=== PATIENT | female | born 1940 | race Caucasian/White ===

== ENCOUNTER 2016-02-21 12:37 | Outpatient (CLI) | payer MEDICARE, OTHER ==
[2016-02-21 13:27] LABS: Albumin 3.9 g/dL (3.4-4.8); Anion Gap 16 mmol/L (10-20); BUN (Urea Nitrogen) 25 mg/dL (9.8-20.1); Calc. Creatinine Clearance 0 mL/min (70-130); Calcium 8.8 mg/dL (7.8-10.44); Carbon Dioxide 21 mmol/L (23-31); Chloride 107 mmol/L (98-107); Estimated GFR-MDRD 48; Glucose 69 mg/dL (83-110); Magnesium 1.8 mg/dL (1.6-2.6); Phosphorus 4.6 mg/dL (2.3-4.7); Potassium 4.6 mmol/L (3.5-5.1); Sodium 139 mmol/L (136-145)
== END 2016-02-21 12:38 | disposition home or self-care (01) ==
LOC: MADLAB 12:37
PROVIDERS: ATTEND Internal Medicine Nephrology
DX: I12.9 Hypertensive chronic kidney disease with stage 1 through stage 4 chronic kidney disease, or unspecified chronic kidney disease (principal); N18.2 Chronic kidney disease, stage 2 (mild); N25.81 Secondary hyperparathyroidism of renal origin; E87.2 Acidosis; E83.51 Hypocalcemia
CPT/HCPCS: 36415; 80048; 82040; 82306; 83735; 83970; 84100

== ENCOUNTER 2019-05-19 03:53 | Inpatient (IN) | payer MEDICARE ==
[2019-05-19] MEDS ORDERED: Lidocaine 1% 20 ML MDV ONE (05:00)
[2019-05-19 05:52] LABS: Bilirubin Negative (Negative); Blood, Urine Large (Negative); Clarity Clear (Clear); Glucose, Urine (Dipstick) Negative (Negative); Leukocyte Trace (Negative); Nitrite Positive (Negative); Protein, Urine (Dipstick) 100 mg/dL (Neg-Trace); Urobilinogen 0.2 mg/dL (Less than 2)
[2019-05-19 06:09] LABS: ALT (SGPT) 11 U/L (8-55); AST (SGOT) 21 U/L (5-34); Albumin 2.9 g/dL (3.4-4.8); Alkaline Phosphatase 105 U/L (40-110); Anion Gap 11 mmol/L (10-20); BUN (Urea Nitrogen) 25 mg/dL (9.8-20.1); Bilirubin, Total 0.2 mg/dL (0.2-1.2); Calc. Creatinine Clearance 0 mL/min (70-130); Calcium 8.1 mg/dL (7.8-10.44); Carbon Dioxide 16 mmol/L (23-31); Chloride 115 mmol/L (98-107); Estimated GFR-MDRD 48; Globulin 3.2 g/dL (2.4-3.5); Glucose 93 mg/dL (83-110); Lipase 14 U/L (8-78); Protein, Total 6.1 g/dL (6.0-8.3); Sodium 139 mmol/L (136-145)
[2019-05-19 06:10] LABS: Bacteria/HPF 2+ HPF (None Seen); Mucous/LPF Rare LPF (<2+)
[2019-05-19] MEDS ORDERED: Adacel (T-DAP) 0.5 ML SYRINGE ONE (06:11)
[2019-05-19 06:12] LABS: Hemoglobin 9.7 g/dL (12.0-16.0); Mean Corpuscular HGB CONC 33.6 g/dL (32.0-36.0); Mean Corpuscular Hemoglobin 34.6 pg (27.0-31.0); Mean Platelet Volume 6.3 fL (7.4-10.4); Platelet Count 211 thou/uL (130-400)
[2019-05-19 06:22] LABS: Manual Diff?? YES
[2019-05-19 06:23] LABS: Band 7 % (5-11); Lymphocytes 6 % (21-51); MDiff Complete? YES; Neutrophil 80 % (42-75)
[2019-05-19 06:24] LABS: Anisocytosis SLIGHT = 6-15 cells (100X) (0-5/hpf); Monocytes 7 % (0-10); Platelet Morphology Comment Appears Adequate; Poikilocytosis SLIGHT = 6-15 cells (100X) (0-5/hpf)
--- NOTE | 2019-05-19 07:24 | CT ---
PRELIMINARY REPORT/[facility]/EMERGENCY AFTER HOURS PROCEDURE: PROCEDURE: CT Head without Contrast . HISTORY: Fall. TECHNIQUE: Axial images were performed without the administration of IV contrast with or without mult iplanar reformations . COMPARISON: None. FINDINGS: Brain shows no mass, hemorrhage, or acute stroke. Moderate periventricular old microischemic changes. Moderate diffuse cerebral and cerebellar atrophy . Ventricles are normal size for patient's age. No acute skull or scalp abnormality. Visualized sinuses and mastoids are clear . IMPRESSION: No acute intracranial abnormality. Senescent changes . ELECTRONICALLY SIGNED BY: Tyshawn Stevenson MD May 19, 2019 5:21:00 AM CDT This report is intended for review by the ordering physician only, in accordance of law. If you recei ve this report in error, please call [facility] at [phone]. FINAL REPORT EMERGENCY AFTER HOURS CT BRAIN WITHOUT CONTRAST: COMPARISON: 11/30/18. FINDINGS/IMPRESSION: I agree with the findings and impression given in the preliminary report per [facility] physici an. Small vessel ischemic disease without acute intracranial abnormality.
--- NOTE | 2019-05-19 07:28 | CT ---
PRELIMINARY REPORT/[facility]/EMERGENCY AFTER HOURS PROCEDURE: PROCEDURE: CT scan Cervical Spine without contrast. HISTORY: Fall. TECHNIQUE: Axial images were performed without IV contrast with multiplanar reconstructions . COMPARISON: None . FINDINGS: No acute fracture or displacement. No disc space narrowing or spur formation. Facets show normal alignment with scattered mild arthrosis. Spinous processes show some secondary os sification centers at the tip of the C7 and T1 spinous processes. Mild to moderate median atlantoaxial joint arthrosis. Moderate atherosclerosis at the carotid bifurcations. IMPRESSION: No acute bony abnormality. Cervical spondyloarthropathy. Moderate atherosclerosis. ELECTRONICALLY SIGNED BY: Tyshawn Stevenson MD May 19, 2019 5:30:24 AM CDT This report is intended for review by the ordering physician only, in accordance of law. If you recei ve this report in error, please call [facility] at [phone]. FINAL REPORT EMERGENCY AFTER HOURS CT CERVICAL SPINE WITHOUT CONTRAST: COMPARISON: 09/27/2018. FINDINGS/IMPRESSION: I agree with the findings and impression given in the preliminary report per [facility] physici an. No evidence of acute osseous abnormality of the cervical spine.
--- NOTE | 2019-05-19 07:37 | RAD ---
EXAM: Portable chest PROVIDED CLINICAL HISTORY: Leukocytosis COMPARISON: 12/21/2018 FINDINGS: Cardiac and mediastinal silhouette is within normal limits. No focal consolidation, pleural fluid or pneumothorax evident. Vascular calcification involves the aortic arch. IMPRESSION: No evidence for an acute cardiopulmonary process.
[2019-05-19] MEDS ORDERED: Potassium Chloride 20 MEQ TAB ONE (08:06)
[2019-05-19] MEDS ORDERED: Sodium Chloride 0.9% 100 ML ONE (08:06)
[2019-05-19] MEDS ORDERED: cefTRIAXone\\ROCEPHIN 1 GM VIAL ONE (08:06)
[2019-05-19] MEDS: Acetaminophen 325 MG TAB PO PRN (12:13)
[2019-05-19] MEDS ORDERED: Non-Formulary Item 1 EACH (Ondansetron Hcl [Zofran] 8 MG) PO PRN (12:31)
[2019-05-19] MEDS ORDERED: MAG HYDROX PO PRN (12:31)
[2019-05-19] MEDS ORDERED: ALPRAZOLAM 1 MG PO PRN (12:31)
[2019-05-19] MEDS ORDERED: Diphenoxylate HCl/Atropine Tablet PO PRN (12:31)
[2019-05-19] MEDS ORDERED: [UNRECOGNIZED DRUG - OTHER] PO PRN (12:31)
[2019-05-19] MEDS ORDERED: CA CARB PO PRN (12:31)
[2019-05-19] MEDS ORDERED: FAMOTIDINE PO PRN (12:31)
[2019-05-19] MEDS ORDERED: [UNRECOGNIZED DRUG - OTHER] PO PRN (12:52)
[2019-05-19] MEDS ORDERED: Ondansetron ODT 4 MG TAB PO PRN (12:53)
[2019-05-19] MEDS ORDERED: Non-Formulary Item 1 EACH (Rivaroxaban [Xarelto] 15 MG) PO SCH (17:00)
[2019-05-19] MEDS ORDERED: FAMCICLOVIR 500 MG PO SCH (17:45)
[2019-05-19] MEDS: Dronedarone HCl 400 MG TAB PO SCH (17:49)
[2019-05-19] MEDS ORDERED: Rivaroxaban 10 MG TAB ONE (17:55)
[2019-05-19] MEDS: Rivaroxaban 10 MG TAB PO SCH (17:57)
[2019-05-19] MEDS: Promethazine 25 MG TAB PO SCH (20:58)
[2019-05-19] MEDS: Carvedilol 3.125 MG TAB PO SCH (20:58)
[2019-05-20 05:32] LABS: Band 1 % (5-11); Eosinophils 3 % (0-10); Hemoglobin 9.8 g/dL (12.0-16.0); Lymphocytes 8 % (21-51); MDiff Complete? YES; Mean Corpuscular HGB CONC 32.5 g/dL (32.0-36.0); Mean Corpuscular Hemoglobin 33.5 pg (27.0-31.0); Mean Corpuscular Volume 102.9 fL (78.0-98.0); Monocytes 4 % (0-10); Neutrophil 84 % (42-75); Platelet Count 217 thou/uL (130-400); Platelet Morphology Comment Appears Adequate; Polychromasia SLIGHT = 2-3 cells (100X) (0-2/hpf); RBC Distribution Width 17.7 % (11.5-14.5); Red Blood Cell (RBC) Count 2.93 mill/uL (4.20-5.40); White Blood Cell (WBC) Count 15.7 thou/uL (4.8-10.8)
[2019-05-20 05:48] LABS: Anion Gap 10 mmol/L (10-20); BUN (Urea Nitrogen) 19 mg/dL (9.8-20.1); Calc. Creatinine Clearance 0 mL/min (70-130); Carbon Dioxide 13 mmol/L (23-31); Chloride 121 mmol/L (98-107); Estimated GFR-MDRD 64; Glucose 68 mg/dL (83-110); Potassium 3.4 mmol/L (3.5-5.1); Sodium 141 mmol/L (136-145)
[2019-05-20] MEDS ORDERED: Levothyroxine Sodium 88 MCG TAB PO SCH (09:00)
[2019-05-20] MEDS ORDERED: VORTIOXETINE HYDROBROMIDE 20 MG PO SCH (09:00)
[2019-05-20] MEDS: cefTRIAXone\\ROCEPHIN 1 GM in Sodium Chloride 0.9% 100 ML IVPB SCH (09:22)
[2019-05-20] MEDS: Dronedarone HCl 400 MG TAB PO SCH ×2 (09:23→17:14)
[2019-05-20] MEDS: Spironolactone 25 MG TAB PO SCH (09:24)
[2019-05-20] MEDS: FAMCICLOVIR 500 MG PO SCH (09:24)
[2019-05-20] MEDS: TRINTELLIX 20 MG PO SCH (09:25)
[2019-05-20] MEDS: Rivaroxaban 10 MG TAB PO SCH (17:14)
[2019-05-20] MEDS: Promethazine 25 MG TAB PO SCH (20:25)
[2019-05-20] MEDS: Carvedilol 3.125 MG TAB PO SCH (20:26)
[2019-05-20] MEDS: ALPRAZolam 0.5 MG TAB PO PRN (23:01)
[2019-05-21 05:54] LABS: #Basophils 0.1 thou/uL (0.0-0.2); #Eosinphils 0.6 thou/uL (0.0-0.7); #Lymphocytes 1.5 thou/uL (1.20-3.40); #Monocytes 1.1 thou/uL (0.11-0.59); #Neutrophils 11.2 thou/uL (1.40-6.50); %Basophils 0.6 % (0.0-1.0); %Lymphocytes 10.4 % (21.0-51.0); %Monocytes 7.3 % (0.0-10.0); %Neutrophils 77.6 % (42.0-75.0); Hemoglobin 10.1 g/dL (12.0-16.0); Mean Corpuscular HGB CONC 33.1 g/dL (32.0-36.0); Mean Corpuscular Hemoglobin 33.1 pg (27.0-31.0); Mean Corpuscular Volume 99.8 fL (78.0-98.0); Mean Platelet Volume 6.4 fL (7.4-10.4); Platelet Count 227 thou/uL (130-400); Red Blood Cell (RBC) Count 3.06 mill/uL (4.20-5.40); White Blood Cell (WBC) Count 14.5 thou/uL (4.8-10.8)
[2019-05-21 06:10] LABS: Anion Gap 11 mmol/L (10-20); BUN (Urea Nitrogen) 14 mg/dL (9.8-20.1); Calc. Creatinine Clearance 0 mL/min (70-130); Calcium 8.1 mg/dL (7.8-10.44); Carbon Dioxide 15 mmol/L (23-31); Chloride 119 mmol/L (98-107); Estimated GFR-MDRD 62; Glucose 70 mg/dL (83-110); Potassium 3.2 mmol/L (3.5-5.1); Sodium 142 mmol/L (136-145)
[2019-05-21] MEDS: Levothyroxine Sodium 75 MCG TAB PO SCH (06:32)
[2019-05-21] MEDS: FAMCICLOVIR 500 MG PO SCH (09:30)
[2019-05-21] MEDS: Dronedarone HCl 400 MG TAB PO SCH ×2 (09:30→17:40)
[2019-05-21] MEDS: cefTRIAXone\\ROCEPHIN 1 GM in Sodium Chloride 0.9% 100 ML IVPB SCH ×2 (09:30→17:46)
[2019-05-21] MEDS: TRINTELLIX 20 MG PO SCH (09:30)
[2019-05-21] MEDS: Spironolactone 25 MG TAB PO SCH (09:30)
[2019-05-21] MEDS ORDERED: Potassium Chloride 20 MEQ TAB PO SCH (12:15)
[2019-05-21] MEDS: ALPRAZolam 0.5 MG TAB PO PRN (13:46)
[2019-05-21] MEDS: Acetaminophen 325 MG TAB PO PRN (16:46)
[2019-05-21] MEDS ORDERED: Sodium Chloride 0.9% 500 ML IV SCH (17:15)
[2019-05-21] MEDS: Rivaroxaban 10 MG TAB PO SCH (17:40)
[2019-05-21] MEDS: Promethazine 25 MG TAB PO SCH ×3 (21:34→21:44)
[2019-05-21] MEDS: Carvedilol 3.125 MG TAB PO SCH (21:37)
[2019-05-21] MEDS: metroNIDAZOLE 500 MG in Premix Bag 1 BAG IVPB SCH (21:37)
--- NOTE | 2019-05-22 01:25 | HP ---
Date of Encounter: 05/19/2019 PRIMARY CARE PROVIDER: Jame Gil MD HISTORY OF PRESENT ILLNESS: The patient is a 78-year-old female who has history of chronic diarrhea, who presented to the emergency department status post a fall. Patient reports that she fell out of her chair. She is unsure of what prompted her to the fall. She just remembers ending up on the floor. She hit the left side of the head on the ground. She denies any chest pain or shortness of breath prior to the fall. She does note increased diarrhea over the last several days. The patient does have a history of, as stated previously, chronic diarrhea, for which she sees Dr. Alaniz for routine GI treatments. In addition to increased diarrhea, she also reports decreased p.o. intake over the last couple days. She states that she has never fallen before and is normally very ambulatory on her own. Of note, she has had a colonoscopy and EGD in the last several years. She is unsure of the results, but states that they were normal. PAST MEDICAL HISTORY: 1. Chronic diarrhea. 2. Atrial fibrillation. 3. Hypothyroidism. 4. Prior history of pulmonary embolism. 5. Chronic anemia. MEDICATION: 1. Tylenol No. 3. 2. Mirtazapine 15 mg daily. 3. Tums. 4. Alprazolam 1 mg p.o. t.i.d. p.r.n. 5. Famciclovir 500 mg p.o. daily. 6. Lomotil 2 tablets p.o. q.i.d. p.r.n. 7. Multaq 400 mg p.o. b.i.d. 8. Levothyroxine 88 mcg p.o. q.a.m. 9. Zofran 8 mg p.o. q.i.d. p.r.n. 10. Pantoprazole 40 mg p.o. b.i.d. 11. Phenergan 25 mg p.o. at bedtime. 12. Xarelto 15 mg p.o. q.p.m. 13. Spironolactone 12.5 mg p.o. daily. 14. Trintellix 20 mg p.o. daily. 15. Colestipol 1 mg p.o. b.i.d. ALLERGIES: 1. DOXYCYCLINE. 2. IBUPROFEN. 3. LEVOFLOXACIN. 4. NITROFURANTOIN. 5. SIMVASTATIN. 6. SULFA DRUGS. PAST SURGICAL HISTORY: 1. Gastric bypass. 2. Hernia repair. 3. Hysterectomy. 4. Tonsillectomy. 5. Appendectomy. 6. Urostomy. 7. Left hip surgery. SOCIAL HISTORY: Patient denies tobacco, alcohol, or drug use. She lives at home with her and is independent of all ADLs. FAMILY HISTORY: Noncontributory. REVIEW OF SYSTEMS: CONSTITUTIONAL: Patient denies any fevers or chills. Does report generalized weakness. HEENT: Patient denies vision problems or eye pain. CARDIOVASCULAR: Patient denies chest pain or palpitations. PULMONARY: Patient denies cough, shortness of breath. GASTROINTESTINAL: Patient reports diarrhea and abdominal pain. Denies nausea or vomiting. SKIN: Patient denies rashes or lesions. NEUROLOGICAL: Patient denies headache or dizziness. PSYCHIATRIC: Patient does report anxiety. PHYSICAL EXAMINATION: VITAL SIGNS: Temperature 96.5, pulse 75, respirations 18, oxygen 98% on room air, blood pressure 138/70. GENERAL: Patient is alert and oriented x3, in no distress. HEENT: Normocephalic. Approximately 1 inch laceration to the left shinto, status post repair with simple interrupted sutures. Extraocular muscles intact. Conjunctiva clear. Moist mucous membranes. CARDIOVASCULAR: Regular rate and rhythm. No murmurs, rubs, or gallops. LUNGS: Clear to auscultation bilaterally. No wheezes, rhonchi, or crackles. ABDOMEN: Normoactive bowel sounds. Soft, mild tenderness to palpation in the lower abdomen. No rebound or guarding. Urostomy bag in place. EXTREMITIES: Normal bulk and tone. No peripheral edema or cyanosis. NEUROLOGICAL: Cranial nerves 2-12 intact grossly. No focal deficits. 5/5 strength throughout. PSYCHIATRIC: Appropriate mood and affect. Mild anxiety noted. LABORATORY EVALUATION: CMP; sodium 139, potassium 3.0, chloride 115, carbon dioxide 16, BUN 25, creatinine 1.11, glucose 93, lactic acid 0.7, calcium 8.1, bilirubin 0.2, AST 21, ALT 11, alkaline phosphatase 105. Troponin 0.018. CBC; white blood cell count 19, hemoglobin 9.7, hematocrit 28.8, platelet count 211. Urinalysis significant for large blood, positive nitrites, trace leukocyte esterase, 7 to 10 red blood cells, 4 to 6 white blood cells, 4 to 6 squamous, 2+ bacteria. Brain CT that showed no acute intracranial abnormality. CT of the cervical spine shows no acute bony abnormalities. Cervical spondyloarthropathy. Moderate atherosclerosis. Chest x-ray that showed no evidence for acute cardiopulmonary process. ASSESSMENT/PLAN: Patient is a 78-year-old female who presented to the ER after a fall with complaints of generalized weakness. 1. Acute on chronic diarrhea. Stool samples have been collected. We will continue to monitor. No empiric treatment at this time. As long as patient is tolerating p.o. intake, we will encourage oral rehydration and we will add on IV hydration as needed. 2. Urinary tract infection. We will treat empirically with Rocephin. Urine cultures are pending. 3. Leukocytosis likely related to #1 and #2. We will continue to monitor. 4. Non-anion gap metabolic acidosis likely related to bicarbonate losses from diarrhea. We will continue to monitor. No need for acute intervention at this time. 5. Hypothyroidism. We will continue patient's home medication. We will check a TSH. 6. Chronic anemia, appears stable. Continue to monitor. 7. Anxiety. We will resume patient's home medications. 8. Atrial fibrillation, rate controlled at this time. Continue on anticoagulation. 9. Generalized weakness likely related to volume depletion. We will treat as above. We will also add on physical therapy and occupational therapy for evaluation. 10. Length of stay, greater than 2 midnights at this time. 11. DVT prophylaxis, Xarelto. We will place patient in observation at this time. We will continue to monitor. Job ID: [id number] [facility]
[2019-05-22] MEDS: Levothyroxine Sodium 75 MCG TAB PO SCH (05:21)
[2019-05-22] MEDS: metroNIDAZOLE 500 MG in Premix Bag 1 BAG IVPB SCH ×2 (05:21→14:13)
[2019-05-22 05:50] LABS: Band 7 % (5-11); Elliptocytes SLIGHT = 2-5 cells (100X) (0-1/hpf); Eosinophils 1 % (0-10); Hemoglobin 10.2 g/dL (12.0-16.0); Lymphocytes 2 % (21-51); MDiff Complete? YES; Mean Corpuscular HGB CONC 32.5 g/dL (32.0-36.0); Mean Corpuscular Volume 101.5 fL (78.0-98.0); Mean Platelet Volume 6.3 fL (7.4-10.4); Monocytes 6 % (0-10); Neutrophil 84 % (42-75); Platelet Count 224 thou/uL (130-400); Platelet Morphology Comment Appears Adequate; RBC Distribution Width 16.9 % (11.5-14.5); Red Blood Cell (RBC) Count 3.09 mill/uL (4.20-5.40); Schistocytes SLIGHT = 2-5 cells (100X) (0-1/hpf); White Blood Cell (WBC) Count 21.7 thou/uL (4.8-10.8)
[2019-05-22 05:53] LABS: ALT (SGPT) 20 U/L (8-55); AST (SGOT) 23 U/L (5-34); Albumin 2.8 g/dL (3.4-4.8); Alkaline Phosphatase 104 U/L (40-110); Anion Gap 11 mmol/L (10-20); BUN (Urea Nitrogen) 12 mg/dL (9.8-20.1); Bilirubin, Total 0.2 mg/dL (0.2-1.2); Calc. Creatinine Clearance 0 mL/min (70-130); Carbon Dioxide 15 mmol/L (23-31); Chloride 117 mmol/L (98-107); Estimated GFR-MDRD 65; Globulin 3.1 g/dL (2.4-3.5); Glucose 76 mg/dL (83-110); Magnesium 1.5 mg/dL (1.6-2.6); Potassium 3.1 mmol/L (3.5-5.1); Protein, Total 5.9 g/dL (6.0-8.3); Sodium 140 mmol/L (136-145)
[2019-05-22] MEDS ORDERED: Cefdinir 300 MG CAP PO SCH (09:00)
[2019-05-22] MEDS: Dronedarone HCl 400 MG TAB PO SCH ×2 (09:01→18:23)
[2019-05-22] MEDS: Spironolactone 25 MG TAB PO SCH (09:01)
[2019-05-22] MEDS: TRINTELLIX 20 MG PO SCH (09:03)
[2019-05-22] MEDS: FAMCICLOVIR 500 MG PO SCH (09:05)
[2019-05-22] MEDS: ALPRAZolam 0.5 MG TAB PO PRN (09:10)
[2019-05-22] MEDS ORDERED: Magnesium Oxide 400 MG TAB PO SCH (10:45)
[2019-05-22] MEDS ORDERED: Potassium Chloride 20 MEQ TAB PO SCH (12:00)
[2019-05-22] MEDS: Potassium Chloride 10 MEQ TAB PO SCH ×2 (12:06→18:23)
[2019-05-22] MEDS: Vancomycin HCl 25 MG/ML Oral PO SCH ×2 (18:21→23:38)
[2019-05-22] MEDS: cefTRIAXone\\ROCEPHIN 1 GM in Sodium Chloride 0.9% 100 ML IVPB SCH (18:21)
[2019-05-22] MEDS: Rivaroxaban 10 MG TAB PO SCH (18:22)
[2019-05-22] MEDS: Famotidine 20 MG TAB PO SCH (21:19)
[2019-05-22] MEDS: Promethazine 25 MG TAB PO SCH (21:19)
[2019-05-22] MEDS: Carvedilol 3.125 MG TAB PO SCH (21:19)
[2019-05-23] MEDS: Vancomycin HCl 25 MG/ML Oral PO SCH ×4 (05:17→23:54)
[2019-05-23] MEDS: Levothyroxine Sodium 75 MCG TAB PO SCH (05:17)
[2019-05-23 05:56] LABS: #Basophils 0.1 thou/uL (0.0-0.2); #Eosinphils 0.6 thou/uL (0.0-0.7); #Monocytes 0.9 thou/uL (0.11-0.59); #Neutrophils 8.3 thou/uL (1.40-6.50); %Basophils 0.6 % (0.0-1.0); %Eosinophils 4.8 % (0.0-10.0); %Lymphocytes 16.6 % (21.0-51.0); %Monocytes 7.5 % (0.0-10.0); %Neutrophils 70.5 % (42.0-75.0); Hemoglobin 10.6 g/dL (12.0-16.0); Mean Corpuscular HGB CONC 32.3 g/dL (32.0-36.0); Mean Corpuscular Hemoglobin 33.7 pg (27.0-31.0); Mean Corpuscular Volume 104.5 fL (78.0-98.0); Mean Platelet Volume 6.3 fL (7.4-10.4); Platelet Count 235 thou/uL (130-400); RBC Distribution Width 18.1 % (11.5-14.5); Red Blood Cell (RBC) Count 3.15 mill/uL (4.20-5.40); White Blood Cell (WBC) Count 11.8 thou/uL (4.8-10.8)
[2019-05-23 06:17] LABS: Anion Gap 10 mmol/L (10-20); BUN (Urea Nitrogen) 13 mg/dL (9.8-20.1); Calc. Creatinine Clearance 0 mL/min (70-130); Calcium 8.4 mg/dL (7.8-10.44); Carbon Dioxide 13 mmol/L (23-31); Chloride 120 mmol/L (98-107); Estimated GFR-MDRD 56; Glucose 71 mg/dL (83-110); Sodium 139 mmol/L (136-145)
[2019-05-23] MEDS: Spironolactone 25 MG TAB PO SCH (09:01)
[2019-05-23] MEDS: Famotidine 20 MG TAB PO SCH ×2 (09:01→20:48)
[2019-05-23] MEDS: Dronedarone HCl 400 MG TAB PO SCH ×2 (09:01→17:39)
[2019-05-23] MEDS: TRINTELLIX 20 MG PO SCH (09:03)
[2019-05-23] MEDS: FAMCICLOVIR 500 MG PO SCH (09:04)
[2019-05-23] MEDS: ALPRAZolam 0.5 MG TAB PO PRN (17:40)
[2019-05-23] MEDS: Rivaroxaban 10 MG TAB PO SCH (17:40)
[2019-05-23] MEDS: Carvedilol 3.125 MG TAB PO SCH (20:41)
[2019-05-23] MEDS: Promethazine 25 MG TAB PO SCH (20:48)
[2019-05-24] MEDS: Levothyroxine Sodium 75 MCG TAB PO SCH (05:28)
[2019-05-24] MEDS: Vancomycin HCl 25 MG/ML Oral PO SCH ×2 (05:28→11:51)
[2019-05-24] MEDS: TRINTELLIX 20 MG PO SCH (08:08)
[2019-05-24] MEDS: Spironolactone 25 MG TAB PO SCH (08:08)
[2019-05-24] MEDS: Famotidine 20 MG TAB PO SCH (08:08)
[2019-05-24] MEDS: Dronedarone HCl 400 MG TAB PO SCH (08:08)
[2019-05-24] MEDS: FAMCICLOVIR 500 MG PO SCH (08:09)
[2019-05-24 10:53] VITALS: BP 115/57; TEMP 98.2
== END 2019-05-24 12:18 | disposition home health service (06) | DRG 690 ==
LOC: MADERS 03:53 → MADMS 07:55
PROVIDERS: ADMIT Family Medicine; ATTEND Family Medicine
DX: N39.0 Urinary tract infection, site not specified (principal); E87.2 Acidosis; D64.9 Anemia, unspecified; I48.91 Unspecified atrial fibrillation; F32.9 Major depressive disorder, single episode, unspecified; E03.9 Hypothyroidism, unspecified; Z66 Do not resuscitate; E87.6 Hypokalemia; K52.9 Noninfective gastroenteritis and colitis, unspecified; F41.9 Anxiety disorder, unspecified; E87.70 Fluid overload, unspecified; Z79.01 Long term (current) use of anticoagulants; Z86.711 Personal history of pulmonary embolism; Z90.710 Acquired absence of both cervix and uterus; Z90.49 Acquired absence of other specified parts of digestive tract; Z93.2 Ileostomy status; Z88.1 Allergy status to other antibiotic agents; Z88.2 Allergy status to sulfonamides; Z88.8 Allergy status to other drugs, medicaments and biological substances; Z88.6 Allergy status to analgesic agent
CPT/HCPCS: 12011; 36415; 70450; 71045; 72125; 80048; 80053; 81003; 81015; 83605; 83630; 83690; 83735; 84443; 84484; 85025; 87040; 87045; 87046; 87077; 87081; 87086; 87186; 87324; 87427; 87449; 90471; 90715; 93005; 94760; 96365; J0696; J2001; J3490; J7050; L0120; Q0162; Q0169

== ENCOUNTER 2022-11-18 13:58 | Emergency (ER) | payer OTHER, MEDICARE ==
[2022-11-18] MEDS ORDERED: Boostrix 0.5 ML (Tdap) VIAL (>/=7 yrs of age) ONE (14:31)
[2022-11-18] MEDS ORDERED: Lidocaine 1% PF 5 ML VIAL ONE (14:31)
[2022-11-18] MEDS ORDERED: Bacitracin 1 PK ONE (14:31)
[2022-11-18] MEDS ORDERED: Lidocaine 1% w/Epinephrine 1:100K 20 ML VIAL ONE (15:35)
== END 2022-11-18 17:17 | disposition home or self-care (01) ==
LOC: MADERS 13:58
DX: S41.111A Laceration without foreign body of right upper arm, initial encounter (principal); S09.90XA Unspecified injury of head, initial encounter; E03.9 Hypothyroidism, unspecified; Z86.711 Personal history of pulmonary embolism; W01.0XXA Fall on same level from slipping, tripping and stumbling without subsequent striking against object, initial encounter
CPT/HCPCS: 12002; 70450; 72125; 90471; 90715

== ENCOUNTER 2024-09-05 19:30 | Inpatient (IN) | payer MEDICARE ==
[2024-09-05] MEDS: Mirtazapine 15 MG TAB PO SCH (20:54)
[2024-09-05] MEDS: FAMCICLOVIR 250 MG PO SCH (20:54)
[2024-09-05 21:03] VITALS: BMI 19.3
[2024-09-06] MEDS: Diphenoxylate HCl/Atropine Tablet PO PRN ×2 (05:20→19:59)
[2024-09-06] MEDS: Spironolactone 25 MG TAB PO SCH (08:46)
[2024-09-06] MEDS: Multivitamin W/ Minerals 1 TAB PO SCH (08:46)
[2024-09-06] MEDS: Furosemide 20 MG TAB PO SCH (08:46)
[2024-09-06] MEDS: Rosuvastatin 10 MG TAB PO SCH (08:46)
[2024-09-06] MEDS ORDERED: IRON CARBONYL 45 MG PO SCH (09:00)
[2024-09-06] MEDS ORDERED: Emollient 15 oz bottle 450 ML, Triamcinolone Acetonide 200 MG TOP PRN (12:15)
[2024-09-06] MEDS: Emollient 15 oz bottle 450 ML, Triamcinolone Acetonide 200 MG TOP SCH (20:00)
[2024-09-07] MEDS: Ferrous Sulfate 325 MG TAB PO SCH (09:37)
[2024-09-07 16:27] VITALS: BMI 19.3
[2024-09-07] MEDS: Acetaminophen 325 MG TAB ONE (21:26)
[2024-09-07] MEDS: FAMCICLOVIR 250 MG TABLET PO SCH (21:28)
[2024-09-07] MEDS ORDERED: Acetaminophen 325 MG TAB PO PRN (21:47)
[2024-09-09] MEDS: Lantiseptic Ointment 130 GM JAR TOP PRN (13:49)
[2024-09-12] MEDS: Ergocalciferol 1.25 MG(50,000 UNITS) CAP PO SCH (08:33)
[2024-09-14 08:27] VITALS: BP 121/72; TEMP 98.6
== END 2024-09-14 10:00 | disposition home or self-care (01) | DRG 946 ==
LOC: MADMS 19:30
PROVIDERS: ADMIT Family Medicine; ATTEND Family Medicine
PROC: F07Z9ZZ Gait Training/Functional Ambulation Treatment (ICD-10-PCS; principal; 2024-09-05)
DX: R53.81 Other malaise (principal); I48.0 Paroxysmal atrial fibrillation; E03.9 Hypothyroidism, unspecified; E78.5 Hyperlipidemia, unspecified; E16.2 Hypoglycemia, unspecified; E87.5 Hyperkalemia; I95.9 Hypotension, unspecified; R26.89 Other abnormalities of gait and mobility; R74.01 Elevation of levels of liver transaminase levels; S51.811A Laceration without foreign body of right forearm, initial encounter; R63.0 Anorexia; F03.90 Unspecified dementia, unspecified severity, without behavioral disturbance, psychotic disturbance, mood disturbance, and anxiety; Z86.711 Personal history of pulmonary embolism; Z79.01 Long term (current) use of anticoagulants; Z88.8 Allergy status to other drugs, medicaments and biological substances; Z88.1 Allergy status to other antibiotic agents; Z88.2 Allergy status to sulfonamides; Z91.81 History of falling
CPT/HCPCS: 36416